=== PATIENT | female | born 1975 | race Caucasian/White ===

== ENCOUNTER 2020-09-03 13:03 | Emergency (ER) | payer SELFPAY ==
--- NOTE | ~2020-09-03 | XR_ITS ---
XR chest 1V portable DATE: 09/03/2020 14:09 INDICATION: Shortness of breath TECHNIQUE: Portable AP chest on 09/03/2020 at 1411 hours COMPARISON: 12/06/2011 PA and lateral chest FINDINGS: Normal heart size. No hilar or mediastinal enlargement. No pulmonary infiltrate or consolid ation, pleural effusion or pulmonary vascular congestion or pneumothorax. Included skeletal structure s are unremarkable. IMPRESSION: No active cardiopulmonary disease Reviewed, dictated and finalized at location B. [facility]
[2020-09-03 13:17] VITALS: BP 126/88; PULSE 71; RESP 16; O2SAT 100
[2020-09-03 13:18] VITALS: PULSE 73; RESP 16; O2SAT 100
[2020-09-03 13:30] VITALS: BP 124/80; PULSE 78; RESP 16; RESP 22; TEMP 36.8; O2SAT 100
--- NOTE | 2020-09-03 13:39 | ED.SOB ---
HPI - SOB/Dyspnea General Chief Complaint: Shortness of Breath/Dyspnea Stated Complaint: covid symptoms, covid exposure Time Seen by Provider: 09/03/20 13:20 Source: patient Mode of arrival: ambulatory Limitations: no limitations History of Present Illness HPI Narrative: Patient is a 45-year-old female who presents to emergency department for evaluation of upper respiratory symptoms with headache congestion rhinorrhea fatigue body aches and shortness of breath symptoms began Tuesday did have positive Covid exposure patient denies any current nausea vomiting diarrhea chest pain or productive cough. Patient on arrival is in no distress does not take anything today for his symptoms Related Data Allergies Allergy/AdvReac Type Severity Reaction Status Date / Time latex Allergy Intermediate Verified 05/29/20 12:33 adhesive tape Allergy Unknown Verified 05/29/20 12:33 Penicillins Allergy Unknown Verified 05/29/20 12:33 tramadol Allergy Unknown EXTREME Verified 05/29/20 12:33 HEADACHE AND NAUSEATED Review of Systems Review of Systems: All systems reviewed & are unremarkable except as noted in HPI and below PMFSH Family History Family History (System 05/29/20 @ 12:33 by Fede Fermin) Father Hypertension Mother Hypertension Family history of migraine headaches Other Cerebrovascular accident Family history of coronary artery disease Social History Social History Smoking status: Never smoker Second hand tobacco smoke exposure: No Alcohol intake: never Exam Narrative: Exam Narrative: GENERAL: Well-appearing, well-nourished, and in no acute distress. HEAD: Normocephalic, atraumatic. EYES: PERRLA and EOMI. ENT: Nares clear, no rhinorrhea or epistaxis. Mucous membranes moist. CHEST: Clear to auscultation. No respiratory distress. No wheezes rales or rhonchi HEART: Regular rate and rhythm. No murmur heard. EXTREMITIES: Normal range of motion. No edema. SKIN: Warm, dry, no rash. NEURO: No focal deficits. Alert and oriented x3. PSYCH: Normal mood and affect. Course Course Emergency Course: Patient in the room no high risk changes in the evaluation to include blood work and imaging will be discharged home pending Covid results treated symptomatically provided with reasons to return no hypoxemia ABCs stable vital signs stable afebrile nontoxic-appearing no distress no emesis Vital Signs Vital signs: Vital Signs Pulse Rate 71 09/03/20 13:17 Respiratory Rate 16 09/03/20 13:17 Blood Pressure 126/88 09/03/20 13:17 Pulse Oximetry 100 09/03/20 13:17 Temperature 98.3 F 09/03/20 13:30 Pulse Rate 70 09/03/20 14:15 Respiratory Rate 14 09/03/20 14:15 Blood Pressure 124/80 09/03/20 13:30 Pulse Oximetry 100 09/03/20 14:02 MDM - SOB/Dyspnea MDM Narrative Medical decision making narrative: Patient evaluated the emergency department no distress felt appropriate for outpatient reevaluation given reasons to return Lab Data Result diagrams: 09/03/20 14:30 09/03/20 14:30 Labs: Lab Results 09/03/20 09/03/20 09/03/20 Range/Units 13:54 14:30 14:30 WBC 6.6 (4.5-10.0) K/mm3 RBC 4.85 (4.2-5.4) M/mm3 Hgb 14.6 (12.0-15.0) g/dL Hct 42.3 (37.0-47.0) % MCV 87.2 (80-100) fl MCH 30.1 (26-34) pg MCHC 34.5 (32-36) g/dl RDW 12.5 (11.5-14.5) % Plt Count 379 H (150-375) k/mm3 MPV 9.7 (7.4-10.4) fl Immature Gran % (Auto) 0.2 (0-0.5) % Neut % (Auto) 61.4 (45.5-73.1) % Lymph % (Auto) 31.6 (18.3-44.2) % Sharkey % (Auto) 5.7 (2.6-8.5) % Eos % (Auto) 0.6 (0-4.4) % Baso % (Auto) 0.5 (0.2-1.2) % Lymph # (Auto) 2.09 (0.9-3.2) K/mm3 Sharkey # (Auto) 0.4 (0.1-0.6) K/mm3 Eos # (Auto) 0.0 (0-0.3) K/mm3 Baso # (Auto) 0.0 (0.0-0.1) K/mm3 Abs Immat Gran (auto) 0.01 (0.00-0.031) K/mm3 Absolute Neuts (auto) 4.1
[2020-09-03 13:45] VITALS: PULSE 72; RESP 16; O2SAT 100
[2020-09-03 14:02] VITALS: PULSE 71; RESP 14; O2SAT 100
[2020-09-03 14:15] VITALS: PULSE 70; RESP 14
[2020-09-03] MEDS: SODIUM CHLORIDE 0.9% IV 1,000 ML 999 ML IV CONT (14:33)
[2020-09-03 14:38] LABS: Basophils Percent Auto 0.5 % (0.2-1.2); Eosinophils Percent Auto 0.6 % (0-4.4); Hematocrit 42.3 % (37.0-47.0); Hemoglobin 14.6 g/dL (12.0-15.0); Immature Granulocyte Absolute 0.01 K/mm3 (0.00-0.031); Immature Granulocyte Percent A 0.2 % (0-0.5); Lymphocytes Absolute Auto 2.09 K/mm3 (0.9-3.2); Lymphocytes Percent Auto 31.6 % (18.3-44.2); Mean Corpuscular HGB Conc 34.5 g/dl (32-36); Mean Corpuscular Hemoglobin 30.1 pg (26-34); Mean Corpuscular Volume 87.2 fl (80-100); Mean Platelet Volume 9.7 fl (7.4-10.4); Monocytes Absolute Auto 0.4 K/mm3 (0.1-0.6); Monocytes Percent Auto 5.7 % (2.6-8.5); Neutrophils Absolute Auto 4.1 K/mm3 (1.3-6.7); Neutrophils Percent Auto 61.4 % (45.5-73.1); Platelet Count Result 379 k/mm3 (150-375); Red Blood Count 4.85 M/mm3 (4.2-5.4); Red Cell Distribution Width 12.5 % (11.5-14.5); White Blood Count 6.6 K/mm3 (4.5-10.0)
[2020-09-03 14:48] LABS: Anion Gap 12 mmol/L (8-16); Blood Urea Nitrogen 15 mg/dL (7-17); Carbon Dioxide 24 mmol/L (22-30); Chloride 108 mmol/L (98-107); Estimated CRCL calculation 86 ml/min; Estimated Glomerular Filt Rate > 60; Glucose 86 mg/dL (65-105); Potassium 3.8 mmol/L (3.4-5.0); Sodium 144 mmol/L (137-145)
[2020-09-03 23:48] LABS: SARS-CoV-2 RNA PCR Negative
== END 2020-09-03 15:24 | disposition home or self-care (01) ==
PROVIDERS: Emergency Medicine Emergency Medical Services; Emergency Provider Emergency Medicine; PCP Family Medicine
DX: J06.9 Acute upper respiratory infection, unspecified (principal); Z20.828 Contact with and (suspected) exposure to other viral communicable diseases
CPT/HCPCS: 36415; 71045; 80048; 85025; 87635; 96365; 99284; C9803; J0131; J7030; U0003

== ENCOUNTER 2020-10-30 15:39 | Emergency (ER) | payer SELFPAY ==
--- NOTE | ~2020-10-30 | XR_ITS ---
EXAMINATION: XR shoulder RT min 2V EXAM DATE: 10/30/2020 16:07 INDICATION: FALL this p.m.; gen pain Rt shoulder, limited range of motion. Initial encounter. TECHNIQUE: The following right shoulder projections obtained: frontal projection with internal rotati on, frontal projection with external rotation, Grashey, and no prior (4+ views). There is no prior s tudy for comparison. FINDINGS: Large amount of rotator cuff calcific tendinosis over the right greater tuberosity. 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 There are no acute fracture s or dislocations identified. There is no subcutaneous gas. The soft tissue is unremarkable. Ther e are no radiopaque foreign bodies. IMPRESSION: 1. Right shoulder exam without acute osseous findings. 2. Rotator cuff calcific tendinosis. Reviewed, dictated and finalized at location B. [facility] [employer]PER[employer]
[2020-10-30 15:46] VITALS: BP 117/96; PULSE 99; RESP 16; TEMP 36.6; O2SAT 99
--- NOTE | 2020-10-30 15:50 | ED.UPPEXIN ---
HPI - Extremity Injury (Upper) General Chief Complaint: Extremity Injury, Upper Stated Complaint: rt shoulder injury Time Seen by Provider: 10/30/20 16:15 Source: patient and RN notes reviewed Mode of arrival: ambulatory Limitations: no limitations History of Present Illness HPI narrative: 45-year-old female presents with concern for right shoulder pain. Reports for 2 weeks she has had lateral shoulder pain, pain with raising her arm above 30 degrees. Reports family history of shoulder problems. Reports occasionally feeling of tingling in her fingers. She denies shoulder injury or trauma in the past. Reports today she slipped and fell and was not able to use her right arm to catch herself quick enough due to the limited range of motion. Reports she fell on the right shoulder causing worsening pain. Reports prior to today she has been taking Tylenol and ibuprofen for pain relief. MD complaint: injury to: right and shoulder Related Data Home Medications Medication Instructions Recorded Confirmed buspirone 7.5 mg PO DAILY 10/30/20 10/30/20 cetirizine [Zyrtec] 10 mg PO DAILY 10/30/20 10/30/20 omeprazole 40 mg PO DAILY 10/30/20 10/30/20 paroxetine HCl [Paxil] 20 mg PO QAM 10/30/20 10/30/20 Allergies Allergy/AdvReac Type Severity Reaction Status Date / Time latex Allergy Intermediate Unknown Verified 10/30/20 15:58 adhesive tape Allergy Unknown Unknown Verified 10/30/20 15:58 Penicillins Allergy Unknown Unknown Verified 10/30/20 15:58 tramadol Allergy Unknown EXTREME Verified 10/30/20 15:58 HEADACHE AND NAUSEATED Review of Systems Review of Systems: Narrative: CONSTITUTIONAL: Denies malaise, chills, sweats, or fever. SKIN: Denies abrasions, lacerations, bruising, redness, swelling MUSCULOSKELETAL: Reports right shoulder pain, limited range of motion NEUROLOGIC: Denies numbness, weakness. All systems reviewed & are unremarkable except as noted in HPI and below PMFSH Family History Family History (System 05/29/20 @ 12:33 by Fede Fermin) Father Hypertension Mother Hypertension Family history of migraine headaches Other Cerebrovascular accident Family history of coronary artery disease Social History Social History Smoking status: Never smoker Second hand tobacco smoke exposure: No Alcohol intake: never Comments At time of signature, agree with nursing past medical, surgical, social and family history. There is no relevant family history pertinent to the presenting complaint Exam Narrative: Exam Narrative: GENERAL: Well-appearing, well-nourished, and in no acute distress. HEAD: Normocephalic, atraumatic. EYES: PERRLA, conjunctivae clear NECK: Supple. CHEST: Speaks in full sentences. No respiratory distress. HEART: Regular rate and rhythm. Normal and equal peripheral pulses. EXTREMITIES: Right shoulder, arm has normal sensation, normal range of motion. No edema or ecchymosis. 4/5 strength with shoulder abduction, abduction. Normal sensation with sensitivity to light touch and pain. Lateral shoulder tenderness. No open wounds, no skin tenting, no devitalized tissue or atrophy, no trophic changes, no obvious deformity, alignment normal, nearby joints and structures intact. Distal pulses palpable and equal bilaterally, skin warm, dry, pink. Capillary refill less than 3 seconds. SKIN: Warm, dry, no rash. NEURO: Alert and oriented x3. PSYCH: Normal mood and affect Course Course Emergency Course: Patient is aware of diagnosis, understands and agrees to treatment plan. Anticipatory guidance given. Patient agrees to follow-up as directed and is aware of reasons to seek care at the emergency department. Portions of this record may have been created with voice recognition software Vital Signs Vital signs: Vital Signs Temperature 97.8 F 10/30/20 15:46 Pulse Rate 99 10/30/20 15:46 Respiratory Rate 16 10/30/20 15:46 Blood Pr
== END 2020-10-30 16:30 | disposition home or self-care (01) ==
PROVIDERS: Emergency Provider Nurse Practitioner; PCP Family Medicine
DX: M75.31 Calcific tendinitis of right shoulder (principal); M75.101 Unspecified rotator cuff tear or rupture of right shoulder, not specified as traumatic; K21.9 Gastro-esophageal reflux disease without esophagitis; F41.9 Anxiety disorder, unspecified
CPT/HCPCS: 73030; 99213; A4565; G0463

== ENCOUNTER 2020-11-15 16:34 | Emergency (ER) | payer MEDICAID, SELFPAY ==
[2020-11-15 16:38] VITALS: BP 116/81; PULSE 59; RESP 18; TEMP 36.3; O2SAT 97
--- NOTE | 2020-11-15 17:12 | ED.GENADULT ---
HPI - General Adult General Chief complaint: Dental/Oral <Melisa Calderon PA-C - Last Filed: 11/15/20 17:30> Stated complaint: Tooth Infection, Face Swelling <Melisa Calderon PA-C - Last Filed: 11/15/20 17:30> Time Seen by Provider: 11/15/20 16:39 <Melisa Calderon PA-C - Last Filed: 11/15/20 17:30> Source: patient <ANKIT King Last Filed: 11/15/20 17:30> Mode of arrival: ambulatory <ANKIT King Last Filed: 11/15/20 17:30> Limitations: no limitations <ANKIT King Last Filed: 11/15/20 17:30> History of Present Illness HPI narrative: Patient presents with chief complaint of swelling to the lower left jaw that began appoximately 3 days ago. She states she was prescribed augmentin by her primary care and she also packed the tooth with dental cement because it was cracked and the nerve felt exposed. Patient states she has noticed improvement in redness and swelling. She states she tries to eat with antibiotics but she is noticing some nausea and vomiting. No rashes or swelling of mouth or throat. She states that the upper gumline is not painful but she does note some swelling of the left lower jawline. She states that she did notice a little more swelling after waking up from sleep but she has been applying ice and noticed that it is improving. Patient states that she has hydrocodone prescribed for her shoulder that she takes as needed for pain. Patient denies any fever, chills, drainage from the area or any other symptoms. <Melisa Calderon PA-C - Last Filed: 11/15/20 17:30> Related Data Home medications: Home Medications Medication Instructions Recorded Confirmed buspirone 7.5 mg PO DAILY 10/30/20 10/30/20 cetirizine [Zyrtec] 10 mg PO DAILY 10/30/20 10/30/20 omeprazole 40 mg PO DAILY 10/30/20 10/30/20 paroxetine HCl [Paxil] 20 mg PO QAM 10/30/20 10/30/20 <Melisa Calderon PA-C - Last Filed: 11/15/20 17:30> Allergies/adverse reactions: Allergies Allergy/AdvReac Type Severity Reaction Status Date / Time latex Allergy Intermediate Unknown Verified 11/15/20 18:19 adhesive tape Allergy Unknown Unknown Verified 11/15/20 18:19 Penicillins Allergy Unknown Unknown Verified 11/15/20 18:19 <Melisa Calderon PA-C - Last Filed: 11/15/20 17:30> Review of Systems Review of Systems: Narrative: CONSTITUTIONAL: Denies fever, chills, or sweats. EYES: Denies visual changes, redness, or discharge. ENT: Reports left jaw swelling denies rhinorrhea, congestion, sore throat, or otalgia. CARDIOVASCULAR: Denies chest pain, palpitations, or edema. RESPIRATORY: Denies cough or dyspnea. GASTROINTESTINAL: Denies abdominal pain, nausea, vomiting, or diarrhea. GENITOURINARY: Denies dysuria or hematuria. SKIN: Denies rash or itching. MUSCULOSKELETAL: Denies back pain, joint pain, or myalgia. NEUROLOGIC: Denies headache, numbness, dizziness, or weakness. PSYCHIATRIC: Denies anxiety or depression. <Melisa Calderon PA-C - Last Filed: 11/15/20 17:30> PMFSH Family History Family History: Family History (System 05/29/20 @ 12:33 by Fede Fermin) Father Hypertension Mother Hypertension Family history of migraine headaches Other Cerebrovascular accident Family history of coronary artery disease <Melisa Calderon PA-C - Last Filed: 11/15/20 17:30> Social History Social History: Social History Smoking status: Never smoker Second hand tobacco smoke exposure: No Alcohol intake: never Gender identity (if verbalized by the patient): Female <Melisa Calderon PA-C - Last Filed: 11/15/20 17:30> Exam Narrative: Exam Narrative: GENERAL: Well-appearing, well-nourished, and in no acute distress. HEAD: Normocephalic, atraumatic. EYES: PERRLA and EOMI. ENT: Nares clear, no rhinorrhea or epistaxis. Mucous membranes moist. Oropharynx without tonsillar hypertrophy exudate or other lesions. Bilateral TM
--- NOTE | 2020-11-15 18:22 | PC.NURSE ---
This RN entered under wrong pt. Under HEENT
== END 2020-11-15 18:24 | disposition home or self-care (01) ==
LOC: ANHED 17:46
PROVIDERS: Emergency Provider General Practice; PCP Family Medicine
DX: K04.7 Periapical abscess without sinus (principal); K02.9 Dental caries, unspecified
CPT/HCPCS: 99283

== ENCOUNTER 2021-06-27 11:12 | Emergency (ER) | payer OTHER, SELFPAY ==
--- NOTE | ~2021-06-27 | XR_ITS ---
EXAMINATION: XR finger 5th LT min 2V EXAM DATE: 06/27/2021 12:21 INDICATION: INJURY Lt 5th finger this a.m.; lac palmar, dist phalanx. TECHNIQUE: Left 5th finger frontal, lateral and oblique projections obtained and reviewed. There i s no prior study for comparison. FINDINGS: Laceration identified along the volar aspect of the left 5th distal phalangeal base. There is a round density measuring about 5 mm near this region of uncertain clinical significance. This fi nding has been indicated, marked on the examination for review, clinical correlation. There are no ac [place] fractures identified. IMPRESSION: 1. Laceration. 2. Nonspecific round density. Clinical correlation. Reviewed, dictated and finalized at location A.
[2021-06-27 11:30] VITALS: BP 118/76; PULSE 83; RESP 16; TEMP 36.2; O2SAT 99
--- NOTE | 2021-06-27 13:20 | ED.WOUNDLAC ---
HPI - Wound/Laceration General Chief Complaint: Wound/Laceration Stated Complaint: FINGER LACERATION Source: patient and RN notes reviewed Limitations: no limitations History of Present Illness HPI narrative: The right-handed patient, previously mostly healthy who works at home with immunizations not UTD, presents with finger laceration. Patient states she was moving a heavy exercise bike, when she lacerated / crushed fingertip when it was smashed. She complains of mild pain and bleeding from a transverse distal tuft laceration. No nail involvement, deformity and the bleeding is since improved. Patient desires suture repair Related Data Home Medications Medication Instructions Recorded Confirmed buspirone 7.5 mg PO DAILY 10/30/20 06/27/21 cetirizine [Zyrtec] 10 mg PO DAILY 10/30/20 06/27/21 paroxetine HCl [Paxil] 20 mg PO QAM 10/30/20 06/27/21 alprazolam 0.5 mg PO PRN PRN 06/27/21 06/27/21 Allergies Allergy/AdvReac Type Severity Reaction Status Date / Time latex Allergy Intermediate Unknown Verified 06/27/21 11:32 adhesive tape Allergy Unknown Unknown Verified 06/27/21 11:32 Penicillins Allergy Unknown Unknown Verified 06/27/21 11:32 Review of Systems Review of Systems: General/Constitutional: No weight loss,fever Eyes: N0: Redness,discharge Ears/Nose/Throat: No: Epistaxis,ear discharge Respiratory: Denies: Hemoptysis Gastrointestinal: No Vomiting, Bleeding-rectal Skin: No Lumps, eruption Neurologic: No Focal Weakness,Sz Hematologic: Denies: Petechiae/Purpura Psychiatric: No: Suicida ideationl All Other Systems: Reviewed and Negative [facility] Family History Family History (System 05/29/20 @ 12:33 by Fede Fermin) Father Hypertension Mother Hypertension Family history of migraine headaches Other Cerebrovascular accident Family history of coronary artery disease Social History Social History Smoking status: Never smoker Second hand tobacco smoke exposure: No Alcohol intake: never Gender identity (if verbalized by the patient): Female Comments At time of signature, agree with nursing past medical, surgical, social and family history. There is no relevant family history pertinent to the presenting complaint Exam Narrative: General Appearance: Well appearing, conjunctiva clear Ears: External ear normal, Auditory canal normal Nose: Normal nose, Nares clear Mouth/Throat: Normal appearing, Normal lips, Supple Respiratory: Airway patent, No respiratory distress MS: Normal strength (mostly intact, limited flexion/extension by pain), Tenderness (distal tuft, with mild decreased ROM), Swelling (distal,), Other (no anterior drawer, no collateral laxity, Skin: Warm, Dry, Normal color, for centimeter irregular transverse laceration of the finger tuft without nail involvement Neurological: A&O x3, Speech clear, CN II-XII intact Psychiatric: Normal mood, Normal affect Course Vital Signs Vital signs: Vital Signs Temperature 97.2 F L 06/27/21 11:30 Pulse Rate 83 06/27/21 11:30 Respiratory Rate 16 06/27/21 11:30 Blood Pressure 118/76 06/27/21 11:30 Pulse Oximetry 99 06/27/21 11:30 Temperature 97.2 F L 06/27/21 11:30 Pulse Rate 83 06/27/21 11:30 Respiratory Rate 16 06/27/21 11:30 Blood Pressure 118/76 06/27/21 11:30 Pulse Oximetry 99 06/27/21 11:30 Procedures Laceration Laceration 1: Date: 06/27/21 Site: hand Side (If applicable): left (Small finger) Size (cm): 0.75 Depth: simple, single layer Local Anesthetic: other anesthetic (Let gel) Pre-repair: irrigated extensively ====== Skin Level ====== Skin layer closed with: nylon Size (cm): 5-0 ====== Subcutaneous Layer ====== ====== Muscle Layer ====== ====== Tendon Layer ====== Discharge Plan Discharge Clinical Impression: Finger laceration Qualifiers:
[2021-06-27] MEDS: TETANUS,DIPHTHERIA,AC PERTUSSIS ADULT (0.5 ML) BOOSTRIX IM (13:35)
== END 2021-06-27 13:55 | disposition home or self-care (01) ==
PROVIDERS: Emergency Provider Emergency Medicine; PCP Family Medicine
DX: S61.217A Laceration without foreign body of left little finger without damage to nail, initial encounter (principal); X58.XXXA Exposure to other specified factors, initial encounter; Z23 Encounter for immunization; F41.9 Anxiety disorder, unspecified; K21.9 Gastro-esophageal reflux disease without esophagitis
CPT/HCPCS: 12001; 73140; 90471; 90715; 99213; G0463

== ENCOUNTER 2021-07-05 11:37 | Emergency (ER) | payer OTHER, SELFPAY ==
[2021-07-05] VITALS (19 sets, daily range): BP systolic 119–139; BP diastolic 82–94; PULSE 81–96; RESP 15–20; TEMP 36.8; O2SAT 96–99
--- NOTE | 2021-07-05 11:52 | PC.NURSE ---
poison control reports that this event as a Benadryl od, s/s may include urinary retention/hallucinations, anticholinergic symptoms. lab studies would include salicylate/Tylenol labs. ekg due to possible qrs widening
--- NOTE | 2021-07-05 13:03 | PC.NURSE ---
unable to attain labs at this time, having US IV person attempt
[2021-07-05 13:15] LABS: Basophils Absolute Auto 0.1 K/mm3 (0.0-0.1); Basophils Percent Auto 0.7 % (0.2-1.2); Eosinophils Absolute Auto 0.1 K/mm3 (0-0.3); Hematocrit 43.3 % (37.0-47.0); Hemoglobin 14.5 g/dL (12.0-15.0); Immature Granulocyte Absolute 0.02 K/mm3 (0.00-0.031); Immature Granulocyte Percent A 0.2 % (0-0.5); Lymphocytes Absolute Auto 1.86 K/mm3 (0.9-3.2); Lymphocytes Percent Auto 21.5 % (18.3-44.2); Mean Corpuscular HGB Conc 33.5 g/dl (32-36); Mean Corpuscular Hemoglobin 30.1 pg (26-34); Mean Corpuscular Volume 89.8 fl (80-100); Mean Platelet Volume 9.7 fl (7.4-10.4); Monocytes Absolute Auto 0.5 K/mm3 (0.1-0.6); Monocytes Percent Auto 5.8 % (2.6-8.5); Neutrophils Absolute Auto 6.1 K/mm3 (1.3-6.7); Neutrophils Percent Auto 70.8 % (45.5-73.1); Platelet Count Result 329 k/mm3 (150-375); Red Blood Count 4.82 M/mm3 (4.2-5.4); Red Cell Distribution Width 12.3 % (11.5-14.5); White Blood Count 8.7 K/mm3 (4.5-10.0)
[2021-07-05 13:27] LABS: Acetaminophen < 10 ug/mL (10-30); Salicylate < 1.0 mg/dL (2-20)
[2021-07-05 13:31] LABS: Alanine Aminotransferase 11 U/L (4-35); Albumin Level 4.3 g/dL (3.5-5.1); Alkaline Phosphatase 97 U/L (38-126); Anion Gap 8 mmol/L (8-16); Aspartate Amino Transferase 22 U/L (14-36); Bilirubin,Total 0.3 mg/dL (0.2-1.3); Blood Urea Nitrogen 13 mg/dL (7-17); Calcium 9.4 mg/dL (8.4-10.2); Carbon Dioxide 25 mmol/L (22-30); Chloride 107 mmol/L (98-107); Estimated CRCL calculation 77 ml/min; Estimated Glomerular Filt Rate > 60; Glucose 100 mg/dL (65-110); Potassium 4.1 mmol/L (3.4-5.0); Sodium 140 mmol/L (137-145)
[2021-07-05 14:34] LABS: Add Urine Microscopic? YES; Appearance Urine Cloudy (Clear); Bilirubin Urine Negative (Negative); Blood Urine Negative (Negative); Color Urine Yellow (Yellow); Glucose Urine UA Negative (Negative); Ketones Urine Negative (Negative); Leukocyte Esterase Ur Negative LEU/UL (Negative); Mucus Urine Few /lpf; Nitrate Urine Negative (Negative); Protein Urine Negative (Negative); RBC Urine 0-2 /hpf (0-2); Specific Grav Ur 1.011 (1.001-1.035); Squamous Epithelial Cell Urine Many /hpf (Few); Urobilinogen Urine Negative mg/dL (<2.0)
[2021-07-05 14:39] LABS: Amphetamine Screen Urine Negative (Negative); Barbiturate Screen Urine Negative (Negative); Benzodiazepines Screen Urine Negative (Negative); Cannabinoid Screen Urine Negative (Negative); Cocaine Screen Urine Negative (Negative); Methadone Screen Urine Negative (Negative); Opiate Screen Urine Negative (Negative); Phencyclidine Screen Urine Negative (Negative)
--- NOTE | 2021-07-05 14:46 | ED.OVERDOSE ---
HPI - Overdose General Chief Complaint: Overdose Stated Complaint: overdose Time Seen by Provider: 07/05/21 11:43 Source: patient and EMS Mode of arrival: EMS Limitations: no limitations History of Present Illness HPI Narrative: 46-year-old was brought in from home with complaints of overdose. Patient states that she wanted to sleep she took 2 tablets of Unisom. However as per the EMS and the daughter she put a note on Facebook . Her daughter got alarmed, went home to check on her and she was semiresponsive, later called 911 and patient was brought in here. Patient however denies suicidal ideation. She repeatedly states that I wanted to sleep complaint: intentional overdose Onset (ago): day(s) (1) Intent: unwilling to say How Overdose Was Discovered: called family/friend Context: Intentional Overdose: other (not sure) Associated symptoms: depression Treatments Prior to Arrival: none Related Data Home Medications Medication Instructions Recorded Confirmed buspirone 7.5 mg PO DAILY 10/30/20 06/27/21 cetirizine [Zyrtec] 10 mg PO DAILY 10/30/20 06/27/21 paroxetine HCl [Paxil] 20 mg PO QAM 10/30/20 06/27/21 alprazolam 0.5 mg PO PRN PRN 06/27/21 06/27/21 Allergies Allergy/AdvReac Type Severity Reaction Status Date / Time latex Allergy Intermediate Unknown Verified 07/05/21 11:55 adhesive tape Allergy Unknown Unknown Verified 07/05/21 11:55 Penicillins Allergy Unknown Unknown Verified 07/05/21 11:55 Review of Systems Review of Systems: All systems reviewed & are unremarkable except as noted in HPI and below Constitutional: Constitutional: Reports no additional constitutional complaints Eyes: Eyes: Reports no additional eye complaints ENT: Reports system reviewed and no additional complaints, except as documented Cardiovascular: Cardiovascular: Reports no additional cardiovascular complaints Respiratory: Respiratory: Reports no additional respiratory complaints Gastrointestinal: Gastrointestinal: Reports no additional gastrointestinal complaints Musculoskeletal: Musculoskeletal: Reports no additional musculoskeletal complaints Integumentary/Breasts: Skin/Breast: Reports system reviewed and no additional complaints, except as docu Neurologic: Reports system reviewed and no additional complaints, except as documented Psychiatric: Psychiatric: Reports as per HPI Endocrine: Endocrine: Reports no additional endocrine complaints PMFSH Family History Family History Father Hypertension Mother Hypertension Family history of migraine headaches Other Cerebrovascular accident Family history of coronary artery disease Social History Social History Smoking status: Never smoker Second hand tobacco smoke exposure: No Alcohol intake: never Substance use type: marijuana Gender identity (if verbalized by the patient): Female Exam Narrative: GENERAL: Well-appearing, well-nourished, drowsy but answers all the questions. HEAD: Normocephalic, atraumatic. EYES: PERRLA and EOMI. NECK: Supple. CHEST: Clear to auscultation. No respiratory distress. HEART: Regular rate and rhythm. No murmur heard. Normal peripheral pulses. ABDOMEN: Soft, nontender, nondistended, normal active bowel sounds. EXTREMITIES: Normal range of motion. No edema. SKIN: Warm, dry, no rash. NEURO: No focal deficits. Alert and oriented x3. PSYCH: Flat affect Course Course Emergency Course: Inform patient's daughter and her about her lab work. Will await for career development coordinator for psychiatric assessment. ot was interviwed by intake ,pt is not suicidal , pt can be discharged , family will be taking care. Signed safety plan. Vital Signs Vital signs: Vital Signs Temperature 36.8 C 07/05/21 11:33 Pulse Rate 92 07/05/21 11:33 Respiratory Rate 15 07/05/21 11:33 Blood Pressure 139/94 H 07/05/21 11:33 Pulse Oximetry
--- NOTE | 2021-07-05 14:56 | PC.NURSE ---
Chem, Earlene, [facility]
[2021-07-05 15:06] LABS: Ethanol < 10 mg/dL (<10)
--- NOTE | 2021-07-05 15:35 | PC.NURSE ---
nelia from crisis at bedside
== END 2021-07-05 16:31 | disposition home or self-care (01) ==
PROVIDERS: Emergency Provider Family Medicine; PCP Family Medicine
DX: T50.901A Poisoning by unspecified drugs, medicaments and biological substances, accidental (unintentional), initial encounter (principal)
CPT/HCPCS: 36415; 80053; 80307; 81001; 84443; 85025; 99284